=== PATIENT | male | born 1950 | race Caucasian/White ===

== ENCOUNTER → 2016-08-27 | Outpatient (CLI) | payer OTHER | LOC: BHLMT 11:00 | PROVIDERS: ATTEND Internal Medicine Cardiovascular Disease | DX: R07.9 Chest pain, unspecified (principal) | CPT/HCPCS: 93017-PO ==

== ENCOUNTER 2016-09-25 08:38 | Day surgery (SDC) | payer OTHER, BC ==
[2016-09-25] MEDS ORDERED: NS 1,000 ML IV ONE (08:47)
[2016-09-25] MEDS ORDERED: FAMOTIDINE 20 MG TAB PO ONE (08:47)
[2016-09-25] MEDS ORDERED: ASPIRIN EC 325 MG TAB PO ONE (08:47)
[2016-09-25] MEDS ORDERED: diphenhydrAMINE 25 MG CAP PO ONE (08:47)
[2016-09-25] MEDS ORDERED: DIAZEPAM 5 MG TAB PO ONE (08:47)
--- NOTE | 2016-09-25 09:14 | CPEKG ---
Heart Rate: 65 RR Interval: 923 P-R Interval: 220 QRSD Interval: 84 QT Interval: 384 QTC Interval: 400 P [place]: 72 QRS [place]: 35 T Wave [place]: 78 EKG Severity - ABNORMAL ECG - EKG Impression: SINUS RHYTHM EKG Impression: FIRST DEGREE AV BLOCK Electronically Signed By: Juan Lo 25-Sep-2016 21:02:47
[2016-09-25 09:28] LABS: % IMMATURE GRANULYOCYTES 0.5 % (0.0-1.1); ABSOLUTE IMMATURE GRANULOCYTES 0.03 10^3/uL (0.00-0.10); ADD DIFF? NO; ADD MORPH? NO; ADD SCAN? NO; ATYPICAL LYMPHOCYTE FLAG 10 (0-99); FRAGMENT RBC FLAG 0 (0-99); HEMATOCRIT 37.7 % (40.0-51.0); HEMOGLOBIN 13.3 g/dL (13.7-17.5); LEFT SHIFT FLG 0 (0-99); LIPEMIA HEMOLYSIS FLAG 90 (0-99); MEAN CELL HEMOGLOBIN 30.8 pg (27.9-34.1); MEAN CELL HEMOGLOBIN CONCENTR. 35.3 g/dL (32.4-36.7); MEAN CELL VOLUME 87.3 fL (81.5-99.8); MEAN PLATELET VOLUME 9.8 fL (8.7-11.7); PLATELET CLUMPS FLAG 0 (0-99); PLATELET COUNT 213 10^3/uL (150-400); RED BLOOD CELL COUNT 4.32 10^6/uL (4.40-6.38); RED CELL DISTRIBUTION WIDTH 13.5 % (11.5-15.2)
[2016-09-25 09:37] LABS: PROTIME(PATIENT) 13.1 SEC (12.0-15.0)
[2016-09-25] MEDS ORDERED: fentaNYL 100 MCG/2 ML INJ ONE (09:39)
[2016-09-25] MEDS ORDERED: VERAPAMIL 5 MG/2 ML VIAL ONE (09:39)
[2016-09-25] MEDS ORDERED: MIDAZOLAM 2 MG/2 ML VIAL ONE (09:39)
[2016-09-25] MEDS ORDERED: LIDOCAINE 1% 300 MG/30 ML SDV ONE (09:39)
[2016-09-25] MEDS ORDERED: IOPAMIDOL (ISOVUE-370) 150 ML BTL IV ONE ×2 (09:40→10:33)
[2016-09-25] MEDS ORDERED: HEPARIN 10,000 UNIT/10 ML MDV ONE (09:40)
[2016-09-25 09:44] LABS: ANION GAP 13 mEq/L (8-16); CALCIUM 9.9 mg/dL (8.5-10.4); CARBON DIOXIDE 23 mEq/l (22-31); CHLORIDE 101 mEq/L (97-110); CHOLESTEROL 160 mg/dL (140-220); CHOLESTEROL/HDL RATIO 4.44 RATIO (1.00-4.97); CREATININE 1.1 mg/dL (0.7-1.3); GLOMERULAR FILTRATION RATE > 60; GLUCOSE 180 mg/dL (70-100); HIGH DENSITY LIPOPROTEIN 36 mg/dL (40-65); LDL/HDL RATIO 2.11 RATIO (1.00-3.64); LOW DENSITY LIPOPROTEIN 76 mg/dL (80-100); MAGNESIUM 1.5 mg/dL (1.6-2.3); NON-HIGH DENSITY LIPOPROTEIN 124 mg/dL (90-129); POTASSIUM 4.6 mEq/L (3.5-5.2); SODIUM 137 mEq/L (134-144); TRIGLYCERIDE 243 mg/dL (40-150); VERY LOW DENSITY LIPOPROTEINS 48 mg/dL (8-25)
[2016-09-25] MEDS ORDERED: MAGNESIUM SULF 1 GM/DEXTROSE 100 ML BAG IV ONE (09:55)
[2016-09-25] MEDS ORDERED: NITROGLYCERIN 1,500 MCG/15 ML VIAL MISC ONE (10:33)
[2016-09-25] MEDS ORDERED: HYDROCODONE/APAP 5/325 TAB PO PRN (11:13)
[2016-09-25] MEDS ORDERED: OXYCODONE/APAP 5/325 TAB PO PRN (11:13)
[2016-09-25] MEDS ORDERED: NITROGLYCERIN 0.4 MG BTL SL PRN (11:13)
[2016-09-25] MEDS ORDERED: ATROPINE SULFATE 1 MG/10 ML SYR IVP PRN (11:13)
[2016-09-25] MEDS ORDERED: ONDANSETRON 4 MG/2 ML VIAL IVP PRN (11:13)
--- NOTE | 2016-09-25 11:18 | PDDXCAT ---
Diagnostic Cath Note - . Date: 09/25/16 Floor Installer: White Indication: Class III or IV angina, which improves to class I/II w medical therapy - Procedure Access: right wrist Procedure: left heart catheterization, coronary angiography, left ventriculogram - Materials Left Heart Cath size: 5F Left Heart Cath materials: JL3.5, JR4.0, pigtail - Findings-Left Heart Catheterization LM: Distal 20%. LAD: Large caliber. 2 diagnonal branches. Long, tubular proximal 50% lesion. LCX: Single large OM1. High grade (80%) proximal circumflex lesion. Co-dominant with PDA and PL branches. RCA: Dominant, PDa and PL identified. Proximal 80% lesion. EDP: 90/19/24 mmHg. LVEF: >70%. V-gram complicated by VT. Wall motion: Normal. - Findings-Right Heart Catheterization AO: 76/42 mmHg. Complications: None. Estimated blood loss: <50ml Closure method: TR Band Assessment: 3V CAD, CCS III angina, DM2. Plan: Refer to CT surgery for consideration of 3v CABG. Intervention: None.
--- NOTE | 2016-09-25 12:44 | ECHO ---
[id number] + + [address] : : [place] [address] : : [phone] + + Adult Echocardiographic Report + -+ :Name: Hillary ZAMBRANOmic Date: 09/25/2016 11:45 AM BP: 97/53 mmHg : : Hospital Admission Number: [id number] Location: C: :: 1950 Gender: Male Height: 70 in : :Age: 66 yrs Race: WH Weight: 225 lb : :Reason For Study: pre-cabg : : BSA: 2.2 meters2 : :History: pre-CABG : + -+ MMode/2D Measurements \T\ Calculations IVSd: 1.2 cm LVIDd: 4.3 cm FS: 41.9 % Ao root diam: 2.9 cm LVPWd: 1.0 cm LVIDs: 2.5 cm EDV(Teich): 83.7 ml ESV(Teich): 22.4 ml EF(Teich): 73.2 % Normal Measurement Values: + + :LVIDd (3.5-5.7cm) IVSd (0.6-1.1cm) LVPWd (0.6-1.1cm) Aortic Root (2.0-3.7cm)Left Atrium (1.5-4.0cm): :LV Vol(d) (76-115ml) LV Vol(s) (29-48ml) Ejec Fraction (50-65%)PV Thomas (0.6- 1.2m/s) TV Thomas (0.4-1.0m/s) : :MV E Thomas (0.8-1.0m/s)MV A Thomas (0.3-1.0m/s)LVOT Thomas (0.7-1.2m/s) Asc Ao Thomas ( 0.9-1.8m/s) : + + Doppler Measurements \T\ Calculations MV E max thomas: Ao V2 max: LV V1 max: PA V2 max: 71.6 cm/sec 139.0 cm/sec 73.5 cm/sec 79.9 cm/sec MV A max thomas: Ao max P.7 mmHg LV V1 max PG: PA max P.5 cm/sec 2.2 mmHg 2.6 mmHg MV E/A: 0.97 MV dec time: 0.18 sec Left Ventricle The left ventricle is normal in size and function. There is mild concentric left ventricular hypertrophy. Ejection Fraction = 65%. Regional wall motion abnormalities cannot be excluded due to limited visualization. Right Ventricle The right ventricle is normal in size and function. Atria The left atrial size is normal. Right atrial size is normal. Mitral Valve The mitral valve is normal in structure and function. There is no mitral valve stenosis. There is no mitral regurgitation noted. Tricuspid Valve The tricuspid valve is normal in structure and function. There is no tricuspid stenosis. There is trace tricuspid regurgitation. Aortic Valve The aortic valve is not well visualized. There is no aortic stenosis. There is no aortic insufficiency. Pulmonic Valve The pulmonic valve is not well visualized. Great Vessels The aortic root is normal size. Pericardium/Pleural There is no pericardial effusion. Conclusion The study was technically difficult. A two-dimensional transthoracic echocardiogram with M-mode and Doppler was performed. The left ventricle is normal in size and function. There is mild concentric left ventricular hypertrophy. Ejection Fraction = 65%. There is trace tricuspid regurgitation. The aortic valve is not well visualized. Final Reading Physician: Lacey Levi signed on 09/25/2016 12:43 PM Ordering Physician: Art Campos Performed By: Bela Dunlap
== END 2016-09-25 15:14 | disposition home or self-care (01) ==
LOC: FCATH 08:38
PROVIDERS: ATTEND Internal Medicine Cardiovascular Disease
PROC: B2111ZZ Fluoroscopy of Multiple Coronary Arteries using Low Osmolar Contrast (ICD-10-PCS; principal; 2016-09-25)
PROC: 4A023N7 Measurement of Cardiac Sampling and Pressure, Left Heart, Percutaneous Approach (ICD-10-PCS; principal; 2016-09-25)
PROC: B2151ZZ Fluoroscopy of Left Heart using Low Osmolar Contrast (ICD-10-PCS; principal; 2016-09-25)
DX: I25.119 Atherosclerotic heart disease of native coronary artery with unspecified angina pectoris (principal); I10 Essential (primary) hypertension; E78.5 Hyperlipidemia, unspecified; E11.9 Type 2 diabetes mellitus without complications; Z87.891 Personal history of nicotine dependence; Z82.49 Family history of ischemic heart disease and other diseases of the circulatory system
CPT/HCPCS: 93005; 93306; 93458; C1769; J1644; J2250; J3010; J3475; Q9967

== ENCOUNTER → 2016-10-02 | Outpatient (CLI) | payer OTHER, BC | LOC: BHFA 08:30 | PROVIDERS: ATTEND Thoracic Surgery (Cardiothoracic Vascular Surgery) | DX: I65.23 Occlusion and stenosis of bilateral carotid arteries (principal) ==

== ENCOUNTER → 2016-10-02 | Outpatient (CLI) | payer OTHER, BC | LOC: FLAB 09:19 | PROVIDERS: ATTEND Thoracic Surgery (Cardiothoracic Vascular Surgery) | DX: Z01.818 Encounter for other preprocedural examination (principal); I25.10 Atherosclerotic heart disease of native coronary artery without angina pectoris ==

== ENCOUNTER 2016-10-04 05:20 | Inpatient (IN) | payer OTHER, BC ==
[2016-10-02 10:28] LABS: HEMOGLOBIN A1C 6.9 % (4.0-6.0)
[2016-10-04] MEDS ORDERED: LIDOCAINE 1% 2 ML INJ ONE (05:58)
[2016-10-04] MEDS ORDERED: LIDOCAINE 1% 5 ML SDV ID PRN (06:00)
[2016-10-04] MEDS ORDERED: niCARdipine/NACL 200 ML IV ONE (06:00)
[2016-10-04] MEDS ORDERED: MANNITOL 25% 12.5 GM/50 ML VIAL IV ONE (06:00)
[2016-10-04] MEDS ORDERED: ceFAZolin 2 GM/DEXTROSE 100 ML IV ONE (06:00)
[2016-10-04] MEDS ORDERED: INSULIN REGULAR HUMAN 100 UNIT in NS 100 ML IV ONE (06:00)
[2016-10-04] MEDS ORDERED: VERAPAMIL 5 MG, NITROGLYCERIN 2.5 MG, HEPARIN 500 UNIT, SODIUM BICARBONATE 0.2 MEQ in L... MISC ONE (06:00)
[2016-10-04] MEDS ORDERED: PHENYLEPHRINE HCL 50 MG in NS 250 ML IV ONE (06:00)
[2016-10-04] MEDS ORDERED: AMINOCAPROIC ACID 5 GM/20 ML VIAL IV ONE (06:00)
[2016-10-04] MEDS ORDERED: CITRATE DEXTROSE SOLN 500 ML BAG MISC ONE (06:00)
[2016-10-04] MEDS ORDERED: SODIUM BICARBONATE 20 MEQ, LIDOCAINE 1% 10 ML in NORMOSOL-R 1,000 ML MISC ONE (06:00)
[2016-10-04] MEDS ORDERED: NOREPINEPHRINE BITARTRATE 16 MG in NS 250 ML IV ONE (06:00)
[2016-10-04] MEDS ORDERED: LR 1,000 ML IV ONE (06:11)
--- NOTE | 2016-10-04 06:24 | PDHPUP ---
History & Physical Update H&P update statement: This history and physical update is based on an assessment of the patient which was completed after admission or registration (within 24 hours), but prior to the surgery/procedure. H&P changes: -Carotid US: bilateral plaquing, no hemodynamically sig stenoses ICAs, LECA up to 75% stenosis by velocities. Antegrade vert flow bilat. - Endorses twinges of chest pain last couple days, independent of activity, not long enough or severe enough to take NTG
[2016-10-04] MEDS ORDERED: PROTAMINE SULFATE 50 MG/5 ML VIAL IVP ONE ×2 (06:40→09:15)
[2016-10-04] MEDS ORDERED: AMINOCAPROIC ACID 5 GM/20 ML VIAL ONE ×2 (06:41→06:45)
[2016-10-04] MEDS ORDERED: MILRINONE/DEXTROSE/100 ML BAG IV ONE (06:41)
[2016-10-04] MEDS ORDERED: POTASSIUM Cl (KCl) 20 MEQ/50 ML BAG IV ONE (06:41)
[2016-10-04] MEDS ORDERED: CALCIUM CHLORIDE 1 GM/10 ML INJ ONE (06:41)
[2016-10-04] MEDS ORDERED: niCARdipine/NACL/200 ML BAG IV ONE (06:42)
[2016-10-04] MEDS ORDERED: DOPamine/DEXTROSE/250 ML BAG IV ONE ×2 (06:42→22:22)
[2016-10-04] MEDS ORDERED: NA BICARBONATE 50 MEQ/50 ML VIAL ONE (06:42)
[2016-10-04] MEDS ORDERED: AMIODARONE HCL 150 MG/3 ML VIAL ONE ×2 (06:43→06:46)
[2016-10-04] MEDS ORDERED: ADENOSINE 6 MG/2 ML VIAL ONE (06:43)
[2016-10-04] MEDS ORDERED: HEPARIN 10,000 UNIT/10 ML MDV ONE ×2 (06:44→06:46)
[2016-10-04] MEDS ORDERED: ceFAZolin 1 GM VIAL ONE (06:44)
[2016-10-04] MEDS ORDERED: ALBUMIN 5% 250 ML BOTTLE IV ONE (06:44)
[2016-10-04] MEDS ORDERED: LIDOCAINE 2% 100 MG/5 ML SYR ONE (06:45)
[2016-10-04] MEDS ORDERED: CITRATE DEXTROSE SOLN 500 ML BAG ONE (06:45)
[2016-10-04] MEDS ORDERED: MAGNESIUM SULFATE 1 GM/2 ML VIAL ONE (06:46)
[2016-10-04] MEDS ORDERED: methylPREDNISolone SOD SUCC 1 GM/8 ML VIAL ONE (06:46)
[2016-10-04] MEDS ORDERED: MINERAL OIL 10 ML VIAL ONE (06:47)
[2016-10-04] MEDS ORDERED: PAPAVERINE HCL 60 MG/2 ML SDV ONE (06:48)
[2016-10-04] MEDS ORDERED: VERAPAMIL 5 MG/2 ML VIAL ONE (06:48)
[2016-10-04] MEDS ORDERED: MIDAZOLAM 2 MG/2 ML VIAL IVP ONE (06:51)
[2016-10-04] MEDS ORDERED: LIDOCAINE 1% 2 ML INJ ID PRN (06:51)
--- NOTE | 2016-10-04 06:52 | PDANEPAE ---
ANE History of Present Illness cad ANE Past Medical History - Cardiovascular History Hx Hypertension: Yes Hx Arrhythmias: No Hx Chest Pain: Yes Hx Coronary Artery / Peripheral Vascular Disease: Yes Hx CHF / Valvular Disease: No Hx Palpitations: No Cardiovascular History Comment: hyperlipidemia. abnormal stress test. cad. recent dull chest pain - Pulmonary History Hx COPD: No Hx Asthma/Reactive Airway Disease: No Hx Recent Upper Respiratory Infection: No Hx Oxygen in Use at Home: No Hx Sleep Apnea: Yes Sleep Apnea Screening Result - Last Documented: Positive Pulmonary History Comment: olinda positive but hasn't used cpap in a long while. hx of bronchitis. wheezing at times now but pt thinks it's allergy related - Neurologic History Hx Cerebrovascular Accident: No Hx Seizures: No Hx Dementia: No - Endocrine History Hx Diabetes: Yes Endocrine History Comment: type 2 - Renal History Hx Renal Disorders: Yes Renal History Comment: bph - Liver History Hx Hepatic Disorders: No - Neurological & Psychiatric Hx Hx Neurological and Psychiatric Disorders: Yes Neurological / Psychiatric History Comment: ptsd - Cancer History Hx Cancer: No - Congenital Disorder History Hx Congenital Disorders: No - GI History Hx Gastrointestinal Disorders: No - Other Health History Other Health History: wears glasses. upper and lower partial plate - Chronic Pain History Chronic Pain: Yes (occ hand pain, knees and ankles have arthritis) - Surgical History Prior Surgeries: right shoulder surgery- seperated shoulder . cervical spine fusion ANE Review of Systems - Exercise capacity METS (RN): 3 METS ANE Patient History - Allergies Allergies/Adverse Reactions: No Known Allergies Allergy (Verified 10/03/16 15:22) - Home Medications Home Medications: Albuterol [Proventil Inhaler HFA (*)] 1 - 2 puffs IH DAILY PRN 09/25/16 [Last Taken 10/02/16] Aspirin [Aspirin 81mg (*)] 81 mg PO DAILY 09/25/16 [Last Taken 10/03/16] Atorvastatin Calcium [Lipitor 40 mg (*)] 40 mg PO HS 09/25/16 [Last Taken 22:00] Chlorthalidone [Chlorthalidone 25 mg (*)] 25 mg PO DAILY 09/25/16 [Last Taken ] Fluticasone Nasal [Flonase Nasal Dillon (RX)] 2 sprays NASAL DAILY PRN 09/25/16 [ Last Taken 10/02/16] Insulin Aspart [Novolog Flexpen] 15 - 30 unit SQ TIDMEAL 09/25/16 [Last Taken 21:00] Insulin Detemir [Levemir] 45 - 50 unit SQ HS 09/25/16 [Last Taken 10/03/16 21:00 ] Liraglutide [Victoza 3-Williams] 1.8 mg SQ DAILY 09/25/16 [Last Taken 10/03/16] Lisinopril [Zestril 20 mg (*)] 20 mg PO BID 09/25/16 [Last Taken 10/03/16 22:00] Nitroglycerin [Nitrostat 0.4 mg (*)] 0.4 mg SL Q5M PRN 09/25/16 [Last Taken Unknown] Sertraline HCl [Zoloft 100mg (*)] 100 mg PO DAILY 09/25/16 [Last Taken 10/03/16] Tamsulosin HCl [Flomax 0.4 MG (*)] 0.4 mg PO HS 09/25/16 [Last Taken 10/03/16 21 :00] metFORMIN HCL [Glucophage 500 mg (*)] 1,000 mg PO BIDMEAL 09/25/16 [Last Taken 10/01/16] traZODone [traZODONE 50MG (*)] 50 - 100 mg PO HS 09/25/16 [Last Taken 10/03/16 22:00] Metoprolol Tartrate [Lopressor 25 mg (*)] 12.5 mg PO BID 10/03/16 [Last Taken 22:00] - NPO status NPO Status: no food or drink >8 hours NPO Since - Liquids (Date): 10/03/16 NPO Since - Liquids (Time): 22:00 NPO Since - Solids (Date): 10/03/16 NPO Since - Solids (Time): 19:00 - Smoking Hx Smoking Status: Former smoker - Family Anes Hx Family Hx Anesthesia Complications: none ANE Labs/Vital Signs - Vital Signs Blood Pressure: 131/60 Heart Rate: 91 Respiratory Rate: 14 O2 Sat (%): 91 Height: 175.26 cm Weight: 102.058 kg ANE Physical Exam - Airway Mallampati Score: Class 2 Mouth exam: normal dental/mouth exam - Pulmonary Pulmonary: no respiratory distress - Cardiovascular Cardiovascular: regular rate and rhythym - ASA Status ASA Status: III ANE Anesthesia Plan Anesthesia Plan: general endotracheal anesthesia Lines/Monitors: arterial line, central line, SHOBHA
[2016-10-04] MEDS ORDERED: MIDAZOLAM 2 MG/2 ML VIAL ONE ×2 (07:02→11:19)
[2016-10-04] MEDS ORDERED: ROCURONIUM 100 MG/10 ML VIAL ONE (07:06)
[2016-10-04] MEDS ORDERED: PHENYLEPHRINE 10 MG/ML SDV ONE (07:06)
[2016-10-04] MEDS ORDERED: LIDOCAINE 2% 5 ML SDV ONE (07:07)
[2016-10-04] MEDS ORDERED: SUCCINYLCHOLINE CHLORIDE*ANESTHESIA ONLY*200 MG/10 ML SYR IVP ONE (07:13)
[2016-10-04] MEDS: MUPIROCIN 2% 22 GM OINT NS SCH ×3 (07:17→21:00)
[2016-10-04] MEDS ORDERED: fentaNYL 100 MCG/2 ML INJ ONE ×6 (07:17→11:15)
[2016-10-04] MEDS ORDERED: PROPOFOL 200 MG/20 ML VIAL ONE (07:18)
[2016-10-04] MEDS ORDERED: NITROGLYCERIN 50 MG/10 ML SDV IV ONE (08:05)
[2016-10-04] MEDS ORDERED: GLYCOPYRROLATE 0.2 MG/1 ML VIAL ONE (08:06)
[2016-10-04] MEDS ORDERED: DEXMEDETOMIDINE HCL 400 MCG in NS 100 ML IV SCH (10:30)
--- NOTE | 2016-10-04 10:50 | POSTOPPROG ---
Post Op Note Date of Operation: 10/04/16 Surgeon: Chung Gimenez Mandarin Chinese Teacher: Quoc Anesthesiologist: Matias Anesthesia: GET(General Endotracheal) Pre-op Diagnosis: ASHD Procedure: CAB 4 SVG-Lad, Lcx,Rca FLIMA-Dg, EVH, Atriclip Inf/Abcess present in the surg proc area at time of surgery?: No EBL: Minimal
[2016-10-04] MEDS ORDERED: MAGNESIUM HYDROXIDE 30 ML UDCUP PO PRN (11:03)
[2016-10-04] MEDS ORDERED: POLYETHYLENE GLYCOL 3350 17 GM PKT PO PRN (11:03)
[2016-10-04] MEDS ORDERED: ONDANSETRON 4 MG/2 ML VIAL IVP PRN (11:03)
[2016-10-04] MEDS ORDERED: MEPERIDINE 25 MG/ML SYR IVP PRN (11:03)
[2016-10-04] MEDS ORDERED: MAGNESIUM SULF 2 GM/WATER 50 ML IV ONE (11:03)
[2016-10-04] MEDS ORDERED: SODIUM CL NASAL 45 ML BTL EACHNARE PRN (11:03)
[2016-10-04] MEDS ORDERED: METOCLOPRAMIDE 10 MG/2 ML VIAL IVP PRN (11:03)
[2016-10-04] MEDS ORDERED: fentaNYL 100 MCG/2 ML INJ IVP PRN (11:03)
[2016-10-04] MEDS ORDERED: POTASSIUM Cl (KCl) 50 ML IV PRN (11:03)
[2016-10-04] MEDS ORDERED: CEPACOL LOZENGE PO PRN (11:03)
[2016-10-04] MEDS ORDERED: ACETAMINOPHEN 650 MG SUPP PR PRN (11:03)
[2016-10-04] MEDS ORDERED: PANTOPRAZOLE SODIUM 40 MG in NS 100 ML IV ONE (11:03)
[2016-10-04] MEDS ORDERED: BISACODYL 10 MG SUPP PR PRN (11:03)
[2016-10-04] MEDS ORDERED: D50W 25 GM/50 ML SYR IVP PRN (11:03)
[2016-10-04] MEDS ORDERED: LACTULOSE 20 GM/30 ML UDCUP PO PRN (11:03)
[2016-10-04] MEDS ORDERED: ALBUMIN 5% 250 ML IV PRN (11:03)
[2016-10-04] MEDS ORDERED: ONDANSETRON DISINTEGRATING 4 MG TAB PO PRN (11:03)
[2016-10-04] MEDS ORDERED: NS 1,000 ML IV SCH (11:15)
[2016-10-04] MEDS ORDERED: NALOXONE HCL 0.4 MG/ML INJ IVP PRN ×2 (11:29→20:30)
--- NOTE | 2016-10-04 11:29 | POSTANESTH ---
Post Anesthetic Evaluation Cardiovascular Status: Normal, Stable Respiratory Status: Normal, Stable Level of Consciousness/Mental Status: Can Participate in Eval, Moderately Sleepy Pain Control: Adequate, Prn Tx Ordered Nausea/Vomiting Control: Adequate, Prn Tx Ordered Complications Possibly Related to Anesthesia: None Noted
[2016-10-04] MEDS ORDERED: INSULIN REGULAR HUMAN 100 UNIT in NS 100 ML IV SCH (11:30)
[2016-10-04 12:00] LABS: CALCULATED OXYGEN SATURATION 96 % (92-95); O2 CONCENTRATIION 100 % (0-100)
[2016-10-04] MEDS ORDERED: D10W 250 ML PRN HYPOGLYCEMIA IV (12:00)
[2016-10-04] MEDS ORDERED: KETOROLAC 30 MG/1 ML SDV ONE (12:55)
[2016-10-04] MEDS ORDERED: KETOROLAC 30 MG/1 ML SDV IVP ONE (13:00)
--- NOTE | 2016-10-04 16:07 | GOP ---
[f rep st] OPERATIVE REPORT DATE OF OPERATION: 10/04/2016 SURGEON: Chung Gimenez DO STEAM CONDITIONER FILLING: MARBELLA Matias ANESTHESIOLOGIST: Luigi Salcedo MD PREOPERATIVE DIAGNOSIS: Arteriosclerotic heart disease with unstable angina. POSTOPERATIVE DIAGNOSIS: Arteriosclerotic heart disease with unstable angina. PROCEDURE PERFORMED: 1. Coronary artery bypass grafting x4 with the saphenous vein graft to the left anterior descending artery, the lateral circumflex, and the right coronary artery; and free left internal mammary arter y to the diagonal. 2. Endoscopic vein harvest. 3. Ligation of left atrial appendage with AtriClip. FINDINGS: The patient was noted to have mild LV dysfunction with hypertrophic heart disease. Was n oted to have severe 3-vessel disease. DESCRIPTION OF PROCEDURE: He was brought to the operating room after consent. He was prepped and d raped in sterile classical manner. Sternotomy was performed. The mammary was harvested; however, h is chest wall was quite short and the LAD lesion was distal. It was therefore taken as a free graft in hopes that it would be adequate for a small LAD. It had brisk flow, but was 1.5 to 1.7 mm in di ameter. The vein was harvested endoscopically from the left leg and was good quality vein, harveste d by Della Kumari, who first assisted throughout the procedure. The patient was heparinized, cannulated . Bypass was begun. A cardioplegic arrest was obtained with antegrade cardioplegia and topical hyp othermia as well as systemic cooling. Initially, the circumflex vessel was grafted and brought off the ascending aorta with a cross-clamp on. It was a 2.5 mm good quality vessel. We then ligated the left atrial appendage with a 40 mm At riClip. We then looked at both the LAD and diagonal. LAD was a large vessel; because of that, and a very small left internal mammary artery, also the fact that the LAD was rather diffusely diseased until the distal 1/3rd, a good quality vein graft was brought off the LAD and brought off the ascend ing aorta. The free left internal mammary artery was grafted to a 1.5 mm diagonal, and brought off the cabrales of the vein graft to the LAD. Rewarming was begun while the main right coronary artery was grafted. It was a 2.3 mm good quality vessel distally with a proximal anastomosis brought off the ascending aorta. The cross-clamp was removed with suction on the ascending aortic vent, in Trendelenburg. When no fu rther air was identified, the patient was easily weaned from bypass. Echo revealed preserved LV fun ction with no changes and no valvular abnormalities. Heparin was reversed with protamine. The avery halley was removed and oversewn. Two ventricular pacing wires and 2 pleural, 1 mediastinal drain were placed. The thymic fat and pericardium were closed. Chest was closed in standard fashion. The pat ient was returned to ICU in stable condition. /[id number]/MODL
[2016-10-04] MEDS: HYDROCODONE/APAP 5/325 TAB PO PRN (19:10)
[2016-10-04] MEDS ORDERED: ALBUMIN 5% 250 ML IV ONE (20:30)
[2016-10-04] MEDS: HYDROmorphONE/DILAUDID 6 MG/30 ML PCA IV PRN (21:45)
[2016-10-04] MEDS ORDERED: FUROSEMIDE 20 MG/2 ML VIAL ONE (23:54)
[2016-10-05 00:02] LABS: HEMATOCRIT 27.7 % (40.0-51.0); HEMOGLOBIN 9.7 g/dL (13.7-17.5); MEAN CELL HEMOGLOBIN 31.2 pg (27.9-34.1); MEAN CELL VOLUME 89.1 fL (81.5-99.8); RED BLOOD CELL COUNT 3.11 10^6/uL (4.40-6.38); RED CELL DISTRIBUTION WIDTH 14.1 % (11.5-15.2)
[2016-10-05] MEDS: HYDROCODONE/APAP 5/325 TAB PO PRN ×2 (00:05→06:18)
[2016-10-05] MEDS ORDERED: FUROSEMIDE 20 MG/2 ML VIAL IVP ONE (01:45)
[2016-10-05 02:00] LABS: CALCULATED OXYGEN SATURATION 91 % (92-95)
[2016-10-05] MEDS ORDERED: ALBUMIN 5% 250 ML IV ONE ×2 (02:00→11:30)
[2016-10-05 04:52] LABS: % IMMATURE GRANULYOCYTES 0.2 % (0.0-1.1); ABSOLUTE IMMATURE GRANULOCYTES 0.02 10^3/uL (0.00-0.10); ADD DIFF? NO; ADD MORPH? NO; ADD SCAN? NO; ATYPICAL LYMPHOCYTE FLAG 0 (0-99); FRAGMENT RBC FLAG 0 (0-99); HEMATOCRIT 27.8 % (40.0-51.0); HEMOGLOBIN 9.4 g/dL (13.7-17.5); LEFT SHIFT FLG 0 (0-99); LIPEMIA HEMOLYSIS FLAG 90 (0-99); MEAN CELL HEMOGLOBIN 30.1 pg (27.9-34.1); MEAN CELL HEMOGLOBIN CONCENTR. 33.8 g/dL (32.4-36.7); MEAN CELL VOLUME 89.1 fL (81.5-99.8); MEAN PLATELET VOLUME 10.1 fL (8.7-11.7); PLATELET CLUMPS FLAG 0 (0-99); PLATELET COUNT 151 10^3/uL (150-400); RED BLOOD CELL COUNT 3.12 10^6/uL (4.40-6.38); RED CELL DISTRIBUTION WIDTH 14.1 % (11.5-15.2)
[2016-10-05 05:16] LABS: ANION GAP 13 mEq/L (8-16); CALCIUM 9.5 mg/dL (8.5-10.4); CARBON DIOXIDE 21 mEq/l (22-31); CHLORIDE 102 mEq/L (97-110); GLOMERULAR FILTRATION RATE 33; GLUCOSE 131 mg/dL (70-100); POTASSIUM 4.7 mEq/L (3.5-5.2); SODIUM 136 mEq/L (134-144)
--- NOTE | 2016-10-05 07:10 | SOAPPROG ---
SOAP Progress Note Assessment/Plan: Assessment: POD#1 CABG x 4 with FULTON and endoscopic vein harvest from left leg. Ligation of left atrial appendage with AtriClip. Severe CAD with unstable angina s/p CABG x 4. On ASA and Lipitor. No BB due to hypotension. No ACEi due to elevated Cr. Plavix started today. Hypotension overnight requiring albumin and initiation of a Dopamine gtt. Hypotension persists this am. Echo ordered. Respiratory insufficiency stable. Tolerating extubation yesterday. Currently on 4L NC with adequate O2 sats. Acute postop blood loss anemia stable with H&H 9.4/27.8 (9.7/27.7). Will start Iron. Acute kidney injury with BUN 26/Cr 2.0. Preop Cr 1.0. UOP 350mls/12hrs despite albumin, Lasix and Dopamine gtt. Will continue to give more albumin and follow. No ACEi. Keep montoya for accuate I&O's. Chest tube output 271mls/12hrs. No airleak appreciated. Blakes to bulbs. Deconditioning. Encourage ambulation when stable and IS. PT/OT. Plan: Start Plavix today. Will check echo. Oxy/Amanda for better pain control. Blakes to bulbs. Subjective: Patient reports poor pain control. Pain localized to lower sternum. Objective: Vital Signs Temp Pulse Resp BP Pulse Ox 37.9 C 94 16 100/54 L 96 10/05/16 06:00 10/05/16 06:00 10/05/16 06:00 10/05/16 06:00 10/05/16 06:00 Laboratory Results 10/05/16 04:30 10/05/16 04:30 10/04/16 10/05/16 10/06/16 05:59 05:59 05:59 Intake Total 1302.7 750 Output Total 1471 35 Balance -168.3 715 Physical Exam - Physical Exam General Appearance: WD/WN, alert Respiratory: lungs clear, decreased breath sounds (bases) Cardiac/Chest: regular rate, rhythm Abdomen: normal bowel sounds, non-tender, distended (normally) Skin: warm/dry Extremities: other (warm, minimal lower extremity edema) Neuro/Psych: alert, oriented x 3 ICD10 Worksheet Patient Problems: Problems Problem Status Onset CAD (coronary artery disease), [place] coronary artery Acute - ICD10 Problem Qualifiers (1) CAD (coronary artery disease), [place] coronary artery Qualifiers: [place] vs. transplanted heart: [place] heart Associated angina: with unstable angina Qualified Code(s): I25.110 - Atherosclerotic heart disease of [place] coronary artery with unstable angina pectoris
[2016-10-05] MEDS: CLOPIDOGREL BISULFATE 75 MG TAB PO SCH (08:39)
[2016-10-05] MEDS: PANTOPRAZOLE SODIUM 40 MG TAB PO SCH (08:39)
[2016-10-05] MEDS: SERTRALINE HCL 100 MG TAB PO SCH (08:39)
[2016-10-05] MEDS: ASPIRIN 81 MG CHEWABLE TAB PO SCH (08:39)
[2016-10-05] MEDS: MUPIROCIN 2% 22 GM OINT NS SCH ×2 (08:41→21:13)
[2016-10-05] MEDS: HEPARIN 5,000 UNIT/0.5 ML SYR SC SCH ×3 (08:41→22:18)
[2016-10-05] MEDS ORDERED: ALBUTEROL 60 PUFFS/8 GM MDI IH PRN (09:00)
[2016-10-05] MEDS ORDERED: FLUTICASONE NASAL 120 SPRAYS/16 GM MDI EACHNARE PRN (09:00)
[2016-10-05] MEDS ORDERED: FUROSEMIDE 40 MG/4 ML VIAL IVP ONE (10:30)
[2016-10-05] MEDS ORDERED: oxyCODONE ORAL SOLUTION 10 MG/0.5 ML UDSYR PO PRN (10:54)
[2016-10-05] MEDS ORDERED: NOREPINEPHRINE/NS 500 ML IV SCH (11:00)
[2016-10-05] MEDS: FERROUS SULFATE 325 MG TAB PO SCH ×2 (11:45→19:57)
[2016-10-05] MEDS ORDERED: oxyCODONE IR 5 MG TAB PO PRN (12:06)
[2016-10-05 12:20] LABS: POTASSIUM 5.1 mEq/L (3.5-5.2)
[2016-10-05] MEDS: HYDROmorphONE/DILAUDID 6 MG/30 ML PCA IV PRN (12:23)
--- NOTE | 2016-10-05 12:28 | ECHO ---
[id number] + + [address] : : [place] [address] : : [phone] + + Adult Echocardiographic Report + -+ :Name: ALBERTO ZAMBRANOjonathan Date: 10/05/2016 10:41 AM : : Hospital Admission Number: [id number] Location: 3: :: 1950 Gender: Male Height: 69 in : :Age: 66 yrs Race: WH Weight: 225 lb : :Reason For Study: Post operative : : BSA: 2.2 meters2 : + -+ MMode/2D Measurements \T\ Calculations IVSd: 1.1 cm LVIDd: 3.9 cm FS: 37.3 % LVPWd: 1.3 cm LVIDs: 2.4 cm EDV(Teich): 65.8 ml ESV(Teich): 21.1 ml EF(Teich): 67.9 % Normal Measurement Values: + + :LVIDd (3.5-5.7cm) IVSd (0.6-1.1cm) LVPWd (0.6-1.1cm) Aortic Root (2.0-3.7cm)Left Atrium (1.5-4.0cm): :LV Vol(d) (76-115ml) LV Vol(s) (29-48ml) Ejec Fraction (50-65%)PV Thomas (0.6- 1.2m/s) TV Thomas (0.4-1.0m/s) : :MV E Thomas (0.8-1.0m/s)MV A Thomas (0.3-1.0m/s)LVOT Thomas (0.7-1.2m/s) Asc Ao Thomas ( 0.9-1.8m/s) : + + Doppler Measurements \T\ Calculations MV E max thomas: 119.0 cm/sec Ao mean P.8 mmHg LV V1 max: 102.2 cm/sec MV A max thomas: 56.3 cm/sec Ao V2 mean: 91.5 cm/sec LV V1 max P.2 mmHg MV E/A: 2.1 Ao V2 VTI: 23.5 cm LV V1 mean P.2 mmHg MV dec time: 0.19 sec LV V1 mean: 69.9 cm/sec LV V1 VTI: 17.2 cm Left Ventricle The left ventricle is normal in size. There is mild concentric left ventricular hypertrophy. Ejection Fraction = 65%. Regional wall motion abnormalities cannot be excluded due to limited visualization. Right Ventricle The right ventricle is grossly normal size. The right ventricular systolic function is normal. Atria The left atrial size is normal. Right atrial size is normal. Mitral Valve The mitral valve is normal in structure and function. There is no mitral valve stenosis. There is no mitral regurgitation noted. Tricuspid Valve The tricuspid valve is normal in structure and function. There is no tricuspid stenosis. There is trace tricuspid regurgitation. Aortic Valve The aortic valve is not well visualized. There is no aortic stenosis. There is no aortic insufficiency. Pulmonic Valve The pulmonic valve is not well visualized. There is no pulmonic valvular regurgitation. Pericardium/Pleural There is no pericardial effusion. There is a fat pad seen. Conclusion A complete two-dimensional transthoracic echocardiogram was performed (2D, M-mode, Doppler and color flow Doppler). The study was technically difficult. There is mild concentric left ventricular hypertrophy. Ejection Fraction = 65%. Suboptimal imaging precludes a detailed assessment of valvular structures and regional wall motion. No gross valvuar abnormalities. There is trace tricuspid regurgitation. There is no pericardial effusion. Final Reading Physician: Lacey Spencer signed on 10/05/2016 12:26 PM Ordering Physician: Chung Gimenez Performed By: Mariangel Rivera
[2016-10-05] MEDS: FUROSEMIDE 100 MG in D5W 100 ML IV SCH (14:37)
[2016-10-05] MEDS ORDERED: DOPamine/DEXTROSE/250 ML BAG IV ONE (14:41)
[2016-10-05] MEDS ORDERED: D50W 25 GM/50 ML SYR IVP PRN (14:57)
--- NOTE | 2016-10-05 14:59 | GCON ---
[f rep st] CONSULTATION CRITICAL CARE CONSULT DATE OF CONSULTATION: 10/05/2016 HISTORY OF PRESENT ILLNESS: The patient is a 66-year-old male with a history of multiple cardiac ri sk factors, and exertional chest pain, with an abnormal stress test. He underwent cardiac catheteri zation, and was found to have multivessel coronary artery disease, and was admitted for coronary art mirta bypass grafting. His surgery was fairly unremarkable, he was to come back to the ICU extubated, but self-extubated at that time, was relatively stable overnight, though did require pressor suppor t with dopamine, which was changed to Levophed earlier today. He did have some issues of hypoxemia, but has known sleep apnea, and does not use CPAP at home, and felt much better by today. He curren dolores is denying any chest pain, and that is improving daily and no specific cough. REVIEW OF SYSTEMS: Otherwise negative. PAST MEDICAL HISTORY: 1. Benign prostatic hypertrophy. 2. Chronic bronchitis, but no inhaler usage. 3. Diabetes. 4. Hyperlipidemia. 5. Hypertension. 6. Sleep apnea. PAST SURGICAL HISTORY: Includes cervical spine surgery and shoulder surgery in the past. ALLERGIES: None. FAMILY HISTORY: Includes coronary artery disease. SOCIAL HISTORY: He did smoke 1 pack per day, but quit several years ago, and denies any specific al cohol or recreational drug use. CURRENT MEDICATIONS: Include Proventil, aspirin, Lipitor, Ancef, Plavix, fentanyl, Flonase, heparin subcu, Dilaudid, insulin, Levophed, Zofran, OxyContin, Protonix, sertraline, tamsulosin. PHYSICAL EXAMINATION: VITAL SIGNS: He was afebrile. Blood pressure now 116/57 on Levophed, heart rate of 82, respirations 14, oxygen saturation 93% on 4 L. GENERAL: He was an obese male, but was awake and alert, in no apparent distress, and able to speak in full sentences without using accessor y muscles for breathing. HEENT: Pupils equally round and reactive to light. Nonicteric and noninj ected. Mucous membranes are moist, without erythema or exudate. NECK: Supple without adenopathy o r jugular vein distention. He did have a right internal jugular central line without obvious compli cation. LUNGS: Breath sounds were clear to auscultation, but diminished bilaterally. HEART: Had a regular rate and rhythm. Mediastinal incision looked clean and dry without evidence of infection or dehiscence. ABDOMEN: Soft, nontender, nondistended, without hepatosplenomegaly. EXTREMITIES: Show no clubbing, cyanosis, or edema. NEUROLOGICAL: Nonfocal. SKIN: Warm and dry without evidenc e of rash. OBJECTIVE DATA: Includes a white count 9.4, hematocrit 27.8, platelets of 151. A blood gas drawn [facility] this morning showed pH 7.30, pCO2 47, pO2 71, bicarb 23, oxygen saturation 91%. Basic metabo lic panel was significant for a creatinine of 2.0, which is clearly above his baseline. His urine o utput has also been 15 mL/h. ASSESSMENT AND PLAN: 1. Hypotension. The exact etiology is not exactly certain, he did get diuretics overnight with min imal affect. He may be hypovolemic at the moment and would probably stand to have additional volume challenges. We can consider using an for this, and following CVP to monitor urine outpu t, and his change with volume status. I would say the likely etiology here as related to his hypote nsion and ATN, and if it does not improve with a fluid challenge, we could look at urine electrolyte s tomorrow, since today's may be affected by the presence of diuretics. I see no evidence of sepsis at this point, adrenal insufficiency is highly unlikely, and an echocardiogram is pending, but I am not certain that it will show us a cardiogenic source as well. 2. Hypoxemia and sleep apnea. He has not used the CPAP regularly for quite some time. He seems to be managing reasonably well at this point, I would simply leave him on oxygen. 3. Diabetes, we should use an insulin sliding scale. We will continue to follow. /[id number]/MODL
[2016-10-05] MEDS: IPRATROPIUM/ALBUTEROL 3 ML DEYVIAL IH PRN ×3 (17:18→23:00)
[2016-10-05] MEDS: INSULIN LISPRO 100 UNIT/ML SC SCH (17:45)
[2016-10-05 17:47] LABS: POTASSIUM 5.2 mEq/L (3.5-5.2)
[2016-10-05] MEDS: SENNOSIDES/DOCUSATE SODIUM TAB PO SCH (19:57)
[2016-10-05] MEDS: TAMSULOSIN HCL 0.4 MG CAP PO SCH (19:57)
[2016-10-05] MEDS ORDERED: NOREPINEPHRINE BITARTRATE 16 MG in NS 250 ML IV SCH (21:30)
[2016-10-06 05:36] LABS: % IMMATURE GRANULYOCYTES 0.8 % (0.0-1.1); ABSOLUTE IMMATURE GRANULOCYTES 0.11 10^3/uL (0.00-0.10); ADD DIFF? NO; ADD MORPH? NO; ADD SCAN? NO; ATYPICAL LYMPHOCYTE FLAG 0 (0-99); FRAGMENT RBC FLAG 0 (0-99); HEMOGLOBIN 10.7 g/dL (13.7-17.5); LEFT SHIFT FLG 0 (0-99); LIPEMIA HEMOLYSIS FLAG 90 (0-99); MEAN CELL HEMOGLOBIN 30.9 pg (27.9-34.1); MEAN CELL HEMOGLOBIN CONCENTR. 34.5 g/dL (32.4-36.7); MEAN CELL VOLUME 89.6 fL (81.5-99.8); MEAN PLATELET VOLUME 10.3 fL (8.7-11.7); PLATELET CLUMPS FLAG 0 (0-99); PLATELET COUNT 185 10^3/uL (150-400); RED BLOOD CELL COUNT 3.46 10^6/uL (4.40-6.38)
[2016-10-06] MEDS: HEPARIN 5,000 UNIT/0.5 ML SYR SC SCH ×3 (05:42→21:53)
[2016-10-06 05:49] LABS: ANION GAP 14 mEq/L (8-16); CALCIUM 9.1 mg/dL (8.5-10.4); CARBON DIOXIDE 21 mEq/l (22-31); CHLORIDE 99 mEq/L (97-110); CREATININE 2.3 mg/dL (0.7-1.3); GLOMERULAR FILTRATION RATE 28; GLUCOSE 288 mg/dL (70-100); POTASSIUM 4.7 mEq/L (3.5-5.2); SODIUM 134 mEq/L (134-144)
[2016-10-06] MEDS: FUROSEMIDE 100 MG in D5W 100 ML IV SCH (05:55)
--- NOTE | 2016-10-06 07:20 | SOAPPROG ---
SOAP Progress Note Assessment/Plan: Assessment: POD#2 CABG x 4 with FULTON and endoscopic vein harvest from left leg. Prophylactic ligation of left atrial appendage with AtriClip. Severe CAD with unstable angina and preop EF 65% s/p CABG x 4. Will resume ASA and Lipitor when taking po. No BB due to hypotension. No ACEi due to elevated Cr. Plavix held due to patient's NPO status. Hypotension requiring continued albumin, dopa, and initiation of levo yesterday. Transfused 1UPRBC yesterday. Echo performed yesterday showed EF 65 % and no pericardial effusion. Respiratory insufficiency worsening. Now on 7L simple face mask as patient is mouth breather and persistently drowsy. Will d/c Dilaudid HOUSEKEEPING AND LAUNDRY TEAM LEADER to allow patient to be more alert. Acute postop blood loss anemia stable with H&H 10.7/31.0 (9.4/27.8). Acute kidney injury worsening with preop Cr 1.0. Labs today showed BUN 40/Cr 2.3 (26/2.0). Continued low urine output yesterday, started on Lasix gtt with good effect. UOP 1440mls/12hrs, on dopa. No ACEi. Keep montoya for accuate I&O' s. Jaundice appearing today. Will check LFTs. Left pleural chest tube output 80mls/12hrs. No airleak appreciated. Mediastinal chest tube output 40mls/12hrs. Deconditioning. Encourage ambulation when stable and IS. PT/OT. Plan: Check LFTs. D/c HOUSEKEEPING AND LAUNDRY TEAM LEADER Continue NPO. Swallow evaluation when more alert. Will d/c pacing wires. D/c chest tubes. Subjective: Patient too drowsy to complete sentences. Reports adequate pain control. Reportedly disoriented. Objective: Vital Signs Temp Pulse Resp BP Pulse Ox 38.9 C H 84 15 142/60 H 95 10/06/16 07:00 10/06/16 07:00 10/06/16 07:00 10/06/16 07:00 10/06/16 07:00 Laboratory Results 10/06/16 05:20 10/06/16 05:20 10/05/16 10/06/16 10/07/16 05:59 05:59 05:59 Intake Total 1302.7 3179.5 Output Total 1471 2325 160 Balance -168.3 854.5 -160 Physical Exam - Physical Exam General Appearance: WD/WN, other (drowsy) Respiratory: lungs clear, decreased breath sounds (bases) Cardiac/Chest: regular rate, rhythm Abdomen: normal bowel sounds, non-tender, distended (normally distended) Skin: warm/dry Extremities: pedal edema (minimal) Neuro/Psych: other (not following commands because so drowsy, reportedly disoriented per RN) ICD10 Worksheet Patient Problems: Problems Problem Status Onset CAD (coronary artery disease), [place] coronary artery Acute - ICD10 Problem Qualifiers (1) CAD (coronary artery disease), [place] coronary artery Qualifiers: [place] vs. transplanted heart: [place] heart Associated angina: with unstable angina Qualified Code(s): I25.110 - Atherosclerotic heart disease of [place] coronary artery with unstable angina pectoris
[2016-10-06] MEDS: ALBUMIN 5% 250 ML IV PRN ×2 (08:05→10:12)
[2016-10-06] MEDS: IPRATROPIUM/ALBUTEROL 3 ML DEYVIAL IH PRN ×2 (08:05→15:07)
[2016-10-06] MEDS: INSULIN LISPRO 100 UNIT/ML SC SCH ×4 (08:07→18:10)
--- NOTE | 2016-10-06 09:26 | PDINTPN ---
Surgical Resident Progress Note Assessment/Plan: Assessment/plan: 66 M with CAD and multiple cardiac RFs s/p CABG x 4 on 10/04 complicated mostly by self-extubation during transport to ICU and hypotension that required DA and multiple volume challenges. * Hypotension- resolved with fluids. Echo had EF 65% and no pericardial effusion. Off pressors. No ACS, sepsis, adrenal * Hypoxemia- could be related to fluids though was on lasix drip overnight. I suspect his narcotic-induced somnolence is contributing in addition to his untreated JAYLENE (declined CPAP). * AVELINO- likely from hypoxia/hypotension induced ATN. While uop is excellent ( lasix drip, now held), creatinine is up to 2.3. Watch closely, may need repeat BMP this afternoon (K was 4.7 at 0520 in presence of drip) * DM- started insulin SS (mild) yesterday but BG 288 this AM and should target < 140 if possible to facilitate wound healing. Given AVELINO, keep at mild scale for now. * "Chronic bronchitis"- reasonable to use albuterol prn, but would not change to scheduled for now to help avoid arrythmias. Subjective: Increased O2 overnight. No complaints today but somnolent Objective: Vital Signs Temp Pulse Resp BP Pulse Ox 38.6 C H 83 15 130/55 H 94 10/06/16 09:00 10/06/16 09:00 10/06/16 09:00 10/06/16 09:00 10/06/16 09:00 Laboratory Results 10/06/16 05:20 10/06/16 05:20 10/05/16 10/06/16 10/07/16 05:59 05:59 05:59 Intake Total 1302.7 3179.5 Output Total 1471 2325 335 Balance -168.3 854.5 -335 Physical Exam - Physical Exam General Appearance: no apparent distress, other (somnolent) EENT: PERRL/EOMI Neck: supple Respiratory: lungs clear, normal breath sounds, No respiratory distress Cardiac/Chest: regular rate, rhythm Abdomen: non-tender, soft, No distended Skin: normal color, warm/dry Lymphatic: no adenopathy Extremities: normal inspection Neuro/Psych: cognition abnormalities, No abnormal cerebellar tests ICD10 Worksheet Patient Problems: Problems Problem Status Onset CAD (coronary artery disease), [place] coronary artery Acute
[2016-10-06] MEDS: FERROUS SULFATE 325 MG TAB PO SCH (09:50)
[2016-10-06 12:17] LABS: ALBUMIN 3.9 g/dL (3.5-5.0); BILIRUBIN,TOTAL 1.2 mg/dL (0.1-1.4); BILIRUBIN-CONJUGATED 0.6 mg/dL (0.0-0.5); BILIRUBIN-UNCONJUGATED 0.6 mg/dL (0.0-1.1)
[2016-10-06 13:14] LABS: POTASSIUM 4.5 mEq/L (3.5-5.2)
[2016-10-06] MEDS: CLOPIDOGREL BISULFATE 75 MG TAB PO SCH (13:49)
[2016-10-06] MEDS: ASPIRIN 81 MG CHEWABLE TAB PO SCH (13:50)
[2016-10-06] MEDS: PANTOPRAZOLE SODIUM 40 MG TAB PO SCH (13:50)
[2016-10-06] MEDS: SERTRALINE HCL 100 MG TAB PO SCH (13:51)
[2016-10-06] MEDS: SENNOSIDES/DOCUSATE SODIUM TAB PO SCH ×2 (13:51→19:15)
[2016-10-06] MEDS: HYDROCODONE/APAP 5/325 TAB PO PRN (13:52)
[2016-10-06 17:49] LABS: POTASSIUM 4.5 mEq/L (3.5-5.2)
[2016-10-06] MEDS: TAMSULOSIN HCL 0.4 MG CAP PO SCH (19:15)
[2016-10-06] MEDS: ACETAMINOPHEN 325 MG TAB PO PRN (19:23)
[2016-10-06] MEDS ORDERED: FUROSEMIDE 40 MG/4 ML VIAL IVP ONE (20:03)
[2016-10-06] MEDS ORDERED: AMIODARONE A.FIB-6HR INFSN (ORDER 2/3) IV ONE (20:30)
[2016-10-06] MEDS ORDERED: AMIODARONE A.FIB-LOAD DOSE(ORDER 1/3) IV ONE (20:30)
[2016-10-07 00:52] LABS: POTASSIUM 4.1 mEq/L (3.5-5.2)
[2016-10-07] MEDS ORDERED: AMIODARONE A.FIB-18HR INFSN (ORDER 3/3) IV ONE (02:30)
[2016-10-07] MEDS: HYDROCODONE/APAP 5/325 TAB PO PRN ×3 (04:09→21:08)
[2016-10-07 05:48] LABS: HEMATOCRIT 29.3 % (40.0-51.0); MEAN CELL HEMOGLOBIN 30.7 pg (27.9-34.1); MEAN CELL HEMOGLOBIN CONCENTR. 34.1 g/dL (32.4-36.7); MEAN CELL VOLUME 89.9 fL (81.5-99.8); RED BLOOD CELL COUNT 3.26 10^6/uL (4.40-6.38); RED CELL DISTRIBUTION WIDTH 14.1 % (11.5-15.2)
[2016-10-07 06:06] LABS: ANION GAP 13 mEq/L (8-16); CARBON DIOXIDE 22 mEq/l (22-31); CHLORIDE 102 mEq/L (97-110); CREATININE 1.4 mg/dL (0.7-1.3); GLOMERULAR FILTRATION RATE 50; GLUCOSE 301 mg/dL (70-100); POTASSIUM 4.1 mEq/L (3.5-5.2); SODIUM 137 mEq/L (134-144)
[2016-10-07] MEDS: HEPARIN 5,000 UNIT/0.5 ML SYR SC SCH ×2 (06:10→13:09)
[2016-10-07] MEDS ORDERED: INSULIN GLARGINE 100 UNITS/ML SYRINGE SC SCH ×3 (06:44→07:00)
--- NOTE | 2016-10-07 06:48 | SOAPPROG ---
SOAP Progress Note Assessment/Plan: Assessment: POD#3 CABG x 4 (free FULTON-D1, SV-LAD, SV-PLC, SV-RCA). EVH LLE. Prophylactic AtriClip ligation of left atrial appendage. Sx CAD w preserved LV systolic fx - s/p CABG x 4. Early post op course complicated by presumed postCPB vasoplegia requiring fluid support and low dose levo. Appears to be resolving. Levo wean in progress. Tubes and wires out. Secondard prevention with ASA, BB as allowed by BP and statin and when eating well. Adjunctive Plavix x 1 month for free FULTON graft. Acute postoperative respiratory insufficiency - Multifactorial (JAYLENE, suspected COPD, hypoventilation/somnolence on narcs). Resolved with supportive therapy and adjustment in analgesic regimen. Postoperative PAF - with CVR, converting to SR on amio as per protocol. Thromboprophylaxis with DAPT unless recurrent or persistent atrial arrhythmia. Acute expected blood loss anemia - Stable s/p 1u PRBC. H/H > 11/15 maintained. VTE prophylaxis with DAPT. AVELINO - Peak Cr 2.3 of POD#2. Exacerbated by hemodynamic instability. Prompt improvement with pressor support. Follow. DM2, controlled - By preop a1c of 6.9%. Postop hyperglycemia managed with insulin gtt. Transition to prandial/basal/SSI per ICU. IM to assist with management on PCU. Plan: Wean levo to SBP >100. Colloid prn CVP < 12. Remove jan Bishop after off levo. Transition amio to orals tonight. IM consult for diabetic management. Interim restart of basal insulin. Likely can tx to PCU later today. 10/07/16 06:46 Subjective: Doing ok. Comfortable, sitting in a chair. No dizziness. No appetite, just thirst. Objective: Vital Signs Temp Pulse Resp BP Pulse Ox 37.6 C 70 16 124/60 H 94 10/07/16 04:00 10/07/16 06:00 10/07/16 06:00 10/07/16 06:00 10/07/16 06:00 Laboratory Results 10/07/16 05:40 10/07/16 05:40 10/06/16 10/07/16 10/08/16 05:59 05:59 05:59 Intake Total 3179.5 1498.8 Output Total 2325 2325 Balance 854.5 -826.2 Converted to SR ~3am. Levo down to 1 mcg w MAPs > 75, vigorous UOP and normalizing Cr. Suppl O2 req down to 3 Lpm. CXR-> no pulm vasc congestion, min left basilar atelectasis. Physical Exam - Physical Exam General Appearance: alert Respiratory: lungs clear (upper airways), wheezing (exp, at bases) Cardiac/Chest: regular rate, rhythm, other (Sternotomy and LLE venotomy CDI) Abdomen: normal bowel sounds, non-tender, soft Skin: warm/dry Extremities: swelling (trace-1+) ICD10 Worksheet Patient Problems: Problems Problem Status Onset CAD (coronary artery disease), [place] coronary artery Acute
[2016-10-07] MEDS: INSULIN LISPRO 100 UNIT/ML SC SCH ×3 (08:25→19:02)
[2016-10-07] MEDS: ASPIRIN 81 MG CHEWABLE TAB PO SCH (08:26)
[2016-10-07] MEDS: PANTOPRAZOLE SODIUM 40 MG TAB PO SCH (08:26)
[2016-10-07] MEDS: SERTRALINE HCL 100 MG TAB PO SCH (08:26)
[2016-10-07] MEDS: SENNOSIDES/DOCUSATE SODIUM TAB PO SCH ×2 (08:26→21:07)
[2016-10-07] MEDS: CLOPIDOGREL BISULFATE 75 MG TAB PO SCH (08:26)
[2016-10-07] MEDS ORDERED: FUROSEMIDE 40 MG/4 ML VIAL IVP ONE (12:15)
[2016-10-07] MEDS ORDERED: POTASSIUM CL 20 MEQ TAB PO ONE (12:15)
[2016-10-07] MEDS ORDERED: INSULIN LISPRO 100 UNIT/ML SC ONE (13:30)
[2016-10-07] MEDS ORDERED: INSULIN 70/30 HUMAN 100 UNITS/ML SYR SC ONE (21:00)
[2016-10-07] MEDS: TAMSULOSIN HCL 0.4 MG CAP PO SCH (21:08)
[2016-10-07] MEDS: AMIODARONE HCL 200 MG TAB PO SCH (21:08)
[2016-10-07] MEDS: ATORVASTATIN CALCIUM 40 MG TAB PO SCH (21:08)
[2016-10-07] MEDS: IPRATROPIUM/ALBUTEROL 3 ML DEYVIAL IH PRN (21:16)
[2016-10-08 05:30] LABS: ANION GAP 11 mEq/L (8-16); CALCIUM 8.9 mg/dL (8.5-10.4); CARBON DIOXIDE 24 mEq/l (22-31); CHLORIDE 101 mEq/L (97-110); CREATININE 1.5 mg/dL (0.7-1.3); GLOMERULAR FILTRATION RATE 47; GLUCOSE 197 mg/dL (70-100); POTASSIUM 3.8 mEq/L (3.5-5.2); SODIUM 136 mEq/L (134-144)
[2016-10-08] MEDS ORDERED: INSULIN GLARGINE 100 UNITS/ML SYRINGE SC SCH (07:00)
--- NOTE | 2016-10-08 07:30 | SOAPPROG ---
SOAP Progress Note Assessment/Plan: Assessment: POD#4 CABG x 4 (free FULTON-D1, SV-LAD, SV-PLC, SV-RCA). EVH LLE. Prophylactic AtriClip ligation of left atrial appendage. Sx CAD w preserved LV systolic fx - s/p CABG x 4. Early post op course complicated by presumed postCPB vasoplegia requiring fluid support and low dose levo. No prolonged support. Tubes and wires out. Secondary prevention with ASA, BB as allowed by BP, and statin and when eating well. Adjunctive Plavix x 1 month for free FULTON graft. Acute postoperative respiratory insufficiency - Multifactorial (JAYLENE, suspected COPD, hypoventilation/somnolence on narcs). Resolved with supportive therapy and adjustment in analgesic regimen. Postoperative PAF - with CVR, converting to SR on amio as per protocol. Thromboprophylaxis with DAPT unless recurrent or persistent atrial arrhythmia. Acute expected blood loss anemia - Stable s/p 1u PRBC. H/H > 11/15 maintained. VTE prophylaxis with DAPT. AVELINO - Peak Cr 2.3 of POD#2. Exacerbated by hemodynamic instability. Prompt improvement with pressor support and liberalized fluid intake. Follow. DM2, controlled - By preop a1c of 6.9%. Postop hyperglycemia managed with insulin gtt. Transition to prandial/basal/SSI per ICU. IM to assist with management on PCU. Plan: Cont amio 200 mg BID. Diabetic management per IM. Cont aggressive pulm toilet. Add mucinex. Cont inc activity as tolerated. Dispo - Anticipate discharge home w HHC vs SNF next 48hrs. 10/08/16 07:29 Subjective: Doing ok. Making progress with IS but having trouble mobilizing phlegm. Appetite remains somewhat poor. Getting more independent with transfers. Easily winded with light activity. Objective: Vital Signs Temp Pulse Resp BP Pulse Ox 37.2 C 69 16 92/57 L 96 10/08/16 07:18 10/08/16 07:18 10/08/16 07:18 10/08/16 07:18 10/08/16 07:18 Laboratory Results 10/07/16 05:40 10/08/16 04:55 10/07/16 10/08/16 10/09/16 05:59 05:59 05:59 Intake Total 1498.8 2332.4 Output Total 2325 850 Balance -826.2 1482.4 Holding SR. SBP too low for BB. Excellent sats on 4 Lpm O2, likely could wean down. Fluid balance reflects inc intake. Wt down 2 kg and now within 2 kg of preop wt. Labs ok. Physical Exam - Physical Exam General Appearance: alert, no apparent distress Respiratory: normal breath sounds (upper airways), wheezing (bases) Cardiac/Chest: regular rate, rhythm, other (Sternum grossly stable. Sternotomy and LLE venotomy CDI) Abdomen: normal bowel sounds, non-tender, soft Skin: warm/dry Extremities: other (no visible edema) ICD10 Worksheet Patient Problems: Problems Problem Status Onset CAD (coronary artery disease), [place] coronary artery Acute Chronic Disease Mgmt/Transitional Care Acute
[2016-10-08] MEDS: traMADol 50 MG TAB PO PRN ×3 (09:47→21:08)
[2016-10-08] MEDS: SENNOSIDES/DOCUSATE SODIUM TAB PO SCH ×2 (09:47→21:08)
[2016-10-08] MEDS: CLOPIDOGREL BISULFATE 75 MG TAB PO SCH (09:47)
[2016-10-08] MEDS: ASPIRIN 81 MG CHEWABLE TAB PO SCH (09:47)
[2016-10-08] MEDS: PANTOPRAZOLE SODIUM 40 MG TAB PO SCH (09:47)
[2016-10-08] MEDS: SERTRALINE HCL 100 MG TAB PO SCH (09:48)
[2016-10-08] MEDS: AMIODARONE HCL 200 MG TAB PO SCH ×2 (09:48→21:08)
[2016-10-08] MEDS: INSULIN GLARGINE 100 UNITS/ML SYRINGE SC SCH ×2 (09:57→10:05)
[2016-10-08] MEDS: IPRATROPIUM/ALBUTEROL 3 ML DEYVIAL IH PRN (10:00)
[2016-10-08] MEDS: INSULIN LISPRO 100 UNIT/ML SC SCH ×3 (11:17→18:01)
[2016-10-08] MEDS: TAMSULOSIN HCL 0.4 MG CAP PO SCH (21:08)
[2016-10-08] MEDS: ATORVASTATIN CALCIUM 40 MG TAB PO SCH (21:08)
[2016-10-09] MEDS: traMADol 50 MG TAB PO PRN ×2 (03:42→09:06)
[2016-10-09] MEDS: IPRATROPIUM/ALBUTEROL 3 ML DEYVIAL IH PRN ×2 (03:45→11:15)
[2016-10-09 06:02] LABS: POTASSIUM 3.5 mEq/L (3.5-5.2)
[2016-10-09] MEDS ORDERED: NITROGLYCERIN 0.4 MG BTL SL PRN (07:59)
[2016-10-09] MEDS ORDERED: POTASSIUM Cl (KCl) 50 ML IV ONE (08:17)
[2016-10-09] MEDS ORDERED: POTASSIUM CL 20 MEQ TAB PO ONE ×2 (08:17→09:00)
[2016-10-09] MEDS ORDERED: CHLORTHALIDONE 25 MG TAB PO SCH (09:00)
[2016-10-09] MEDS: INSULIN LISPRO 100 UNIT/ML SC SCH ×3 (09:05→17:56)
[2016-10-09] MEDS: INSULIN GLARGINE 100 UNITS/ML SYRINGE SC SCH (09:05)
--- NOTE | 2016-10-09 09:06 | SOAPPROG ---
SOAP Progress Note Assessment/Plan: Assessment: POD#5 CABG x 4 (free FULTON-D1, SV-LAD, SV-PLC, SV-RCA). EVH LLE. Prophylactic AtriClip ligation of left atrial appendage. Sx CAD w preserved LV systolic fx - s/p CABG x 4. Early post op course complicated by presumed postCPB vasoplegia requiring fluid support and low dose levo. No prolonged support. Tubes and wires out. Secondary prevention with ASA, statin, and BB as allowed by BP. Adjunctive Plavix x 1 month for free FULTON graft. Acute postoperative respiratory insufficiency - Multifactorial (JAYLENE, suspected COPD, hypoventilation/somnolence on narcs). Resolved with supportive therapy and adjustment in analgesic regimen. Postoperative PAF - with CVR, converting to SR on amio as per protocol. Insufficient BP for BB. Thromboprophylaxis with DAPT unless recurrent or persistent atrial arrhythmia. Acute expected blood loss anemia - Stable s/p 1u PRBC. H/H > /29 maintained. VTE prophylaxis with DAPT. AVELINO - Peak Cr 2.3 of POD#2. Exacerbated by hemodynamic instability. Prompt improvement with pressor support and liberalized fluid intake. Follow. DM2, controlled - By preop a1c of 6.9%. Postop hyperglycemia managed with insulin gtt. Transition to prandial/basal/SSI per ICU. IM to assist with management on PCU. Plan: Cont amio 200 mg BID. Resume daily diuresis. Lasix today. Usual chlorthalidone tomorrow. Replete K. Diabetic management per IM. Cont aggressive pulm toilet. Cont inc activity as tolerated. Dispo - Anticipate SNF ([facility]) vs [facility] tomorrow. Await PT input. 10/09/16 09:05 Subjective: Doing ok. Found showering yest pretty fatiguing. Recognizes too weak for home. Objective: Vital Signs Temp Pulse Resp BP Pulse Ox 36.8 C 76 12 104/57 L 94 10/09/16 07:21 10/09/16 07:21 10/09/16 07:21 10/09/16 07:21 10/09/16 07:21 Laboratory Results 10/07/16 05:40 10/09/16 04:45 10/08/16 10/09/16 10/10/16 05:59 05:59 05:59 Intake Total 2332.4 1650 Output Total 850 925 200 Balance 1482.4 725 -200 Holding SR w rates 70s-80s. SBP still too low for BB. CXR-> mild pulm vasc congestion, no effusions Positive fluid balance. +2.5 kg overall. Physical Exam - Physical Exam General Appearance: alert, no apparent distress Respiratory: lungs clear (grossly) Cardiac/Chest: regular rate, rhythm, other (Sternum grossly stable. Sternotomy and LLE venotomy CDI.) Abdomen: non-tender, soft Skin: warm/dry Extremities: swelling (trace dependent) ICD10 Worksheet Patient Problems: Problems Problem Status Onset CAD (coronary artery disease), [place] coronary artery Acute Chronic Disease Mgmt/Transitional Care Acute
[2016-10-09] MEDS: CLOPIDOGREL BISULFATE 75 MG TAB PO SCH (09:07)
[2016-10-09] MEDS: ASPIRIN 81 MG CHEWABLE TAB PO SCH (09:07)
[2016-10-09] MEDS: AMIODARONE HCL 200 MG TAB PO SCH ×2 (09:07→20:17)
[2016-10-09] MEDS: SERTRALINE HCL 100 MG TAB PO SCH (09:07)
[2016-10-09] MEDS: SENNOSIDES/DOCUSATE SODIUM TAB PO SCH ×2 (09:07→20:16)
[2016-10-09] MEDS: FUROSEMIDE 40 MG TAB PO SCH ×2 (09:07→15:02)
[2016-10-09] MEDS: PANTOPRAZOLE SODIUM 40 MG TAB PO SCH (09:07)
[2016-10-09] MEDS ORDERED: INSULIN GLARGINE 100 UNITS/ML SYRINGE SC SCH (09:55)
[2016-10-09] MEDS ORDERED: INSULIN GLARGINE 100 UNITS/ML SYRINGE SC ONE (10:45)
[2016-10-09 16:29] LABS: POTASSIUM 3.6 mEq/L (3.5-5.2)
[2016-10-09] MEDS ORDERED: POTASSIUM CL 10 MEQ TAB PO ONE (17:45)
[2016-10-09] MEDS: metFORMIN HCL 500 MG TAB PO SCH (17:56)
[2016-10-09] MEDS: ACETAMINOPHEN 325 MG TAB PO PRN (20:16)
[2016-10-09] MEDS: ATORVASTATIN CALCIUM 40 MG TAB PO SCH (20:16)
[2016-10-09] MEDS: TAMSULOSIN HCL 0.4 MG CAP PO SCH (20:17)
[2016-10-09] MEDS: guaiFENesin 600 MG TAB.ER PO SCH (20:17)
--- NOTE | 2016-10-09 21:18 | GCON ---
[f rep st] CONSULTATION MEDICINE CONSULTATION DATE OF CONSULTATION: 10/09/2016 REASON FOR CONSULTATION: This is a medicine consultation at the request of Dr. Chung Gimenez for eval uation and management of diabetes. HISTORY: This is a 66-year-old man, past medical history of diabetes, hypertension and hyperlipidem ia, who was initially admitted after being found to have severe multivessel coronary artery disease and admitted for revascularization. He is currently status post CABG x4, and has been doing well in the postoperative setting. He has been having issues with his diabetic management and I am asked t o weigh in on this at this time. PAST MEDICAL HISTORY: Includes. 1. Type 2 diabetes. 2. Coronary artery disease. 3. Hyperlipidemia. 4. Hypertension. 5. BPH. 6. COPD. 7. Obstructive sleep apnea. PAST SURGICAL HISTORY: Includes 1. Recent CABG as per above. 2. Cervical spine surgery. 3. Shoulder surgery. FAMILY HISTORY: Father had [place] at age 60. SOCIAL HISTORY: The patient is a prior smoker, currently in remission. No significant alcohol or d rug use. He was previously in the . MEDICATIONS: Home medications prior to this admission included trazodone, metformin, Flomax, sertra line, nitroglycerin, metoprolol, lisinopril, Victoza, insulin detemir, insulin NovoLog, fluticasone, chlorthalidone, atorvastatin, aspirin, albuterol. ALLERGIES: No known drug allergies. PHYSICAL EXAM: VITAL SIGNS: BP 95/56, heart rate 73, respiratory rate 16, O2 sats 95% on room air. Temperature 36.5. GENERAL APPEARANCE: Well-developed/well-nourished man. He is awake and alert. He is in no acute distress. EYES: Anicteric. HENT: Oropharynx clear. CARDIOVASCULAR: RRR, sternal incision is clean, dry, and intact. PULMONARY: CTA bilaterally. ABD OMEN: Soft, nontender. Positive bowel sounds. EXTREMITIES: Trace bilateral lower extremity edema . SKIN: Warm, dry, well perfused. NEURO/PSYCH: Oriented and appropriate. Gait is normal. CLINICAL DATA: Labs reviewed and significant for white blood cell count of 10.5, hematocrit of 29.3 . Most recent glucose is 188 and in review has been recently as high as greater than 350, average r unning in the mid 200s. ASSESSMENT AND PLAN: This is a 66-year-old man, past medical history of diabetes, coronary artery d isease, hypertension, hyperlipidemia, presenting with a 3 vessel coronary disease now status post co ronary artery bypass grafting x4. 1. Diabetes. This has been poorly controlled. It does sound in discussion with the patient that evelyn millan was doing better at home, and I have reviewed his home glucose measurements which were largely in the 100 to low 200 ranges. We have changed his medication regimen since admission. He has been on about half the dose of glargine given he is only taking minimal p.o. At this time, given that his h emoglobin A1c is 6.9 and that his control at home has been good I would favor starting to transition him back to his home regimen. He does have his home insulin with him and will therefore transition off glargine to insulin detemir in the morning with continued sliding scale. We will also resume evelyn is metformin at this time. It does sound as if he has a good understanding of his insulin managemen t. 2. Coronary artery disease, again status post coronary artery bypass grafting and doing well. 3. Hypertension. Blood pressures have been on the low end. We will defer to Cardiology when to re sume his home blood pressure medications. 4. Hyperlipidemia. Continue atorvastatin. 5. Chronic obstructive pulmonary disease. We will continue his usual inhalers. DISPOSITION: Inpatient status. Medicine will continue to follow while patient is in-house. Thank you for this consultation. Again, Medicine will follow while patient is in-house and please, do not hesitate to call with any questions or concerns. /[id number]/MODL
[2016-10-09] MEDS: FLUTICASONE/SALMETER 100/50MCG DISKUS IH SCH (21:56)
[2016-10-10 05:47] LABS: HEMATOCRIT 29.6 % (40.0-51.0)
[2016-10-10 06:05] LABS: ANION GAP 11 mEq/L (8-16); CALCIUM 9.2 mg/dL (8.5-10.4); CARBON DIOXIDE 25 mEq/l (22-31); CHLORIDE 99 mEq/L (97-110); CREATININE 1.1 mg/dL (0.7-1.3); GLOMERULAR FILTRATION RATE > 60; GLUCOSE 134 mg/dL (70-100); POTASSIUM 3.9 mEq/L (3.5-5.2); SODIUM 135 mEq/L (134-144)
--- NOTE | 2016-10-10 08:31 | SOAPPROG ---
SOAP Progress Note Assessment/Plan: Assessment: POD#6 CABG x 4 (free FULTON-D1, SV-LAD, SV-PLC, SV-RCA). EVH LLE. Prophylactic AtriClip ligation of left atrial appendage. Sx CAD w preserved LV systolic fx - s/p CABG x 4. Early post op course complicated by presumed postCPB vasoplegia requiring fluid support and low dose levo. No prolonged support. Tubes and wires out. Secondary prevention with ASA, statin, and BB as allowed by BP. Adjunctive Plavix x 1 month for free FULTON graft. Acute postoperative respiratory insufficiency - Multifactorial (JAYLENE, suspected COPD, hypoventilation/somnolence on narcs). Resolved with supportive therapy and adjustment in analgesic regimen. Postoperative PAF - with CVR, converting to SR on amio as per protocol. Insufficient BP for BB. Thromboprophylaxis with DAPT unless recurrent or persistent atrial arrhythmia. Acute expected blood loss anemia - Stable s/p 1u PRBC. H/H > 11/15 maintained. VTE prophylaxis with DAPT. AVELINO - Peak Cr 2.3 of POD#2. Exacerbated by hemodynamic instability. Prompt improvement with pressor support and liberalized fluid intake. Follow. DM2, controlled - By preop A1c of 6.9%. Postop hyperglycemia managed with insulin gtt. Transition to prandial/basal/SSI as per treasury consultant in ICU and IM on PCU. Plan: Cont amio 200 mg BID. Resume chlorthalidone. Diabetic management per IM. Cont aggressive pulm toilet. Cont inc activity as tolerated. Wean O2. Dispo - SNF ([facility] today. Instructions re diet, meds, activity, wound care and f/u to be reviewed in presence of . 10/10/16 08:29 Subjective: Significant functional progress last 24 hrs. +BMs. Hopeful that won't need more than a week in SNF to recover full independence with ADLs. Objective: Vital Signs Temp Pulse Resp BP Pulse Ox 37.0 C 65 19 97/63 L 95 10/10/16 04:00 10/10/16 04:00 10/10/16 04:00 10/10/16 04:00 10/10/16 04:00 Laboratory Results 10/10/16 04:48 10/10/16 04:48 10/09/16 10/10/16 10/11/16 05:59 05:59 05:59 Intake Total 1650 1750 Output Total 925 1050 Balance 725 700 Cardioresp status stable. 1 kg above preop wt. Labs ok. Physical Exam - Physical Exam General Appearance: alert, no apparent distress Respiratory: normal breath sounds Cardiac/Chest: regular rate, rhythm, other (sternotomy and LLE venotomy CDI) Abdomen: non-tender, soft Skin: warm/dry Extremities: other (no visible edema) ICD10 Worksheet Patient Problems: Problems Problem Status Onset CAD (coronary artery disease), [place] coronary artery Acute Chronic Disease Mgmt/Transitional Care Acute
[2016-10-10] MEDS: SERTRALINE HCL 100 MG TAB PO SCH (08:52)
[2016-10-10] MEDS: PANTOPRAZOLE SODIUM 40 MG TAB PO SCH (08:52)
[2016-10-10] MEDS: CLOPIDOGREL BISULFATE 75 MG TAB PO SCH (08:52)
[2016-10-10] MEDS: ASPIRIN 81 MG CHEWABLE TAB PO SCH (08:52)
[2016-10-10] MEDS: guaiFENesin 600 MG TAB.ER PO SCH (08:52)
[2016-10-10] MEDS: AMIODARONE HCL 200 MG TAB PO SCH (08:53)
[2016-10-10] MEDS: metFORMIN HCL 500 MG TAB PO SCH (08:53)
[2016-10-10] MEDS ORDERED: SENNOSIDES/DOCUSATE SODIUM TAB PO PRN (09:00)
[2016-10-10] MEDS: INSULIN LISPRO 100 UNIT/ML SC SCH (09:02)
[2016-10-10] MEDS: FLUTICASONE/SALMETER 100/50MCG DISKUS IH SCH (09:14)
[2016-10-10 11:04] VITALS: BP 105/55; PULSE 84; RESP 20; TEMP 98; O2SAT 94
[2016-10-10] MEDS ORDERED: PNEUMOC 13-VAL CONJ-DIP CRM/PF 0.5 ML SYR IM ONE (11:59)
--- NOTE | 2016-10-10 12:57 | PDIAF ---
- Diagnosis Diagnosis: JAYLENE, COPD, DM2, CAD s/p CABG; postop PAF Code Status: Full Code - Medication Management Discharge Medications: Medications to Continue on Transfer Albuterol [Proventil Inhaler HFA (*)] 1 - 2 puffs IH DAILY PRN 09/25/16 [Last Taken 10/02/16] Aspirin [Aspirin 81mg (*)] 81 mg PO DAILY 09/25/16 [Last Taken 10/03/16] Atorvastatin Calcium [Lipitor 40 mg (*)] 40 mg PO HS 09/25/16 [Last Taken 22:00] Chlorthalidone [Chlorthalidone 25 mg (*)] 25 mg PO DAILY 09/25/16 [Last Taken ] Fluticasone Nasal [Flonase Nasal [place]] 2 sprays NASAL DAILY PRN 09/25/16 [Last Taken 10/02/16] Insulin Detemir [Levemir] 45 - 50 unit SQ HS 09/25/16 [Last Taken 10/03/16 21:00 ] Nitroglycerin [Nitrostat 0.4 mg (*)] 0.4 mg SL Q5M PRN 09/25/16 [Last Taken Unknown] Sertraline HCl [Zoloft 100mg (*)] 100 mg PO DAILY 09/25/16 [Last Taken 10/03/16] Tamsulosin HCl [Flomax 0.4 MG (*)] 0.4 mg PO HS 09/25/16 [Last Taken 10/03/16 21 :00] metFORMIN HCL [Glucophage 500 mg (*)] 1,000 mg PO BIDMEAL 09/25/16 [Last Taken 10/01/16] Acetaminophen [Tylenol 325mg (*)] 325 - 650 mg PO Q4HRS PRN #0 tab 10/10/16 [ Last Taken Unknown] Amiodarone HCl [Pacerone (*)] 200 mg PO BID #0 tab 10/10/16 [Last Taken Unknown] Clopidogrel Bisulfate [Plavix (*)] 75 mg PO DAILY #0 tab 10/10/16 [Last Taken Unknown] Dextrose 50% Syringe 25 gm IVP PRN PRN #0 syr 10/10/16 [Last Taken Unknown] Fluticasone/[place] 100/50Mcg [Advair 100/50 (*)] 1 puffs IH BID #0 disk [Last Taken Unknown] Hydrocodone/APAP 5/325 [[place] 5/325 (*)] 1 - 2 tab PO Q4HRS PRN #0 tab 10/10/16 [Last Taken Unknown] Insulin Lispro [humALOG LISPRO 100 units/ml (*)] 0 unit SC TIDMEAL #0 unit 10/10 [Last Taken Unknown] Polyethylene Glycol 3350 [Miralax 17 gm (*)] 17 gm PO DAILY PRN #0 pkt 10/10/16 [Last Taken Unknown] Sennosides/Docusate Sodium [Senokot-S] 1 - 2 tab PO BID PRN #0 tab 10/10/16 [ Last Taken Unknown] guaiFENesin [Mucinex 600 MG (*)] 600 mg PO BID #0 tab.er 10/10/16 [Last Taken Unknown] traMADol [Ultram 50 mg (*)] 50 - 100 mg PO Q4HRS PRN #0 tab 10/10/16 [Last Taken Unknown] Discharge Medications: Refer to the Discharge Home Medication list for PRN reason. PICC Care - Routine: N/A - Orders Services needed: Registered Nurse, Physical Therapy, Occupational Therapy Oxygen: 1-2 Lpm cont, or as directed by SpO2; titrate to sat > 89% Diet Recommendation: cardiac -low fat low salt, ADA 2000 consistent carb Diet Texture: Regular Texture Diet Weigh Patient: daily (call Dr Gimenez's office for gain > 2 lbs overnight or absolute gain > 5 lbs) [place]: Not applicable Wound Care Instructions: Daily soap and water. Ok to leave open to air. Avoid ointments until scabs off Activity/Weight Bearing Restrictions: sternal precautions x 3 more weeks. avoid push/pull activities. avoid lifting > 10 lbs with an outstretched arm Equipment: 4WW, O2 Additional: Call patient's front end ui developer for any concerns glycemic control - Labs/Radiology BMP Date: 10/14/16 (Results to Dr Gimenez) CBC Date: 10/14/16 (Results to Dr Gimenez) FBS Date: 10/10/16 (ac and hs) Imaging Orders: Chest xray prior to surgical appointment. Budget 30min to accomplish Call or Fax Lab and Imaging Results to: Dr Gimenez's nurse, Kaur Joe - Follow Up Care Current Providers and Referrals: Timmy Moreira MD [Medical Doctor] - 3 days of d/c SNF/Rehab [facility] [Primary Care Provider] - Chung Gimenez DO [Doctor of Osteopathy] - 10/15/16 11:45 am Art Campos MD [Medical Doctor] - (Follow up in 6 weeks. Appointment to be established by surgery.)
--- NOTE | 2016-10-10 16:58 | PDDCSUM ---
Discharge Summary Discharge Summary: DATE OF ADMISSION: 10/04/16 DATE OF DISCHARGE: 10/10/16 DISPOSITION: Transferred to [facility] PRINCIPAL DISCHARGE DIAGNOSES: 1. Symptomatic severe multivessel coronary artery disease treated with coronary artery bypass grafting 2. Acute postoperative respiratory insufficiency 3. Acute postoperative shock with multiorgan dysfunction 4. Acute expected blood loss anemia 5. Postoperative paroxysmal atrial fibrillation FOLLOW UP APPOINTMENTS: 1. CV surgery: with Dr Gimenez at [facility] on 10/15 at 11:45am. 2. Cardiology: with Dr Campos at [facility] within 4-6 weeks. Appointment to be established during surgical visit. 3. Pulmonology: with Dr Moreira at [facility] Pulmonology within 6-8 weeks. PFTs and inhaler review. FOLLOW UP TESTIN. CBC and BMP on 10/14. Results to [facility]. 2. CXR prior to surgical appointment. ALLERGIES/SENSITIVITIES: NKDA DISCHARGE MEDICATIONS: See medical administration record for full details As on admission (Flomax, Nitrostat, Proventil MDI, Zoloft, Metformin, Lipitor, Insulin Levemir qhs, Insulin Novolog TID meal, Flonase, Chlorthalidone, ASA 81 mg daily) with the following adjustments: 1. Hold Metoprolol tartrate 12.5 mg BID. 2. Hold Lisinopril 20 mg BID. 3. Hold Liraglutide 1.8 mg SQ daily. 4. Hold Insulin Aspart 15-30 unit SQ TID meal. 5. Hold Trazodone 50-100 mg HS. NEW prescriptions: 1. Plavix 75 mg daily thru 11/10/16. 2. Amiodarone 200 mg BID thru 10/17/16, then 200 mg daily x 4 weeks or as per cardiology. 3. Ultram 50 mg q 4-6 hr prn incisional pain. 4. Advair MDI 100/50mcg one puff IH BID. 5. Mucinex 600 mg BID x 2 weeks and then prn difficulty mobilizing phlegm. 6. Insulin Lispro SSI 7. Oxygen @ 1-2 Lpm continuously or as directed by SpO2. Titrate to SpO2 > 88% + /- activity. CONSULTANTS: Pulmonology/critical care (Harish), Hospitalist (Guerrero) PROCEDURES/IMAGIN/18 (Ammy): Coronary artery bypass grafting x 4 (free FULTON-D1, SV-LAD, SV-PLC , SV-RCA). Takedown left internal mammary artery. Endoscopic vein harvest LLE. Prophylactic AtriClip ligation of left atrial appendage. 10/05 (Steve): Transthoracic echocardiogram. HISTORY OF PRESENT ILLNESS: 66 yo male with multiple cardiac risk factors, declining stamina, worsening chest pains, and an abnormal stress test. Found to have severe multivessel CAD with mild LVDD and admitted for elective surgical revascularization. PERTINENT PAST MEDICAL HISTORY: Type II diabetes mellitus with dyslipidemia, HTN, obesity (BMI > 30), JAYLENE, Chronic bronchitis/suspected COPD, BPH with LUTS of nocturia and slow stream ABBREVIATED HOSPITAL COURSE BY ACTIVE PROBLEM LIST: 1. Sx CAD w preserved LV systolic fx - s/p CABG x 4. Early post op course complicated by presumed postCPB vasoplegia requiring fluid support and low dose levo. No prolonged support. Bedside echo neg for RWMA, LVSD, valvular dysfx or pericardial effusion. Secondary prevention with ASA, statin, and BB as allowed by BP. Adjunctive Plavix x 1 month for free FULTON graft. 2. Acute postoperative respiratory insufficiency - Extubated in the OR. Subsequent 12 hrs complicated by hypoxemia and agitation followed by hypoventilation/somnolence on narcs/anxiolytics. Resolved with supportive therapies and adjustment in analgesic regimen. No invasive interventions required. 3. Postop PAF - with CVR, converting to SR on amio as per protocol. Insufficient BP for BB. Thromboprophylaxis with DAPT as isolated episode and KATHY excluded. 4. Acute expected blood loss anemia - Stable s/p 1u PRBC. H/H > 11/15 maintained. 5. AVELINO - Peak Cr 2.3 of POD#2. Exacerbated by hemodynamic instability. Prompt improvement with pressor support and liberalized fluid intake. 6. DM2, controlled - Preop A1c of 6.9%. Postop hyperglycemia managed with insulin gtt. Transition to prandial/basal/SSI as per dispensing optician apprentice in ICU and IM on PCU. Resumption of ACEI as allowed by BP and stability of renal fx.
== END 2016-10-10 13:37 | DRG 235 ==
LOC: F2N 05:20 → F2W 10-07 14:58
PROVIDERS: ADMIT Thoracic Surgery (Cardiothoracic Vascular Surgery); ATTEND Thoracic Surgery (Cardiothoracic Vascular Surgery)
DX: I25.110 Atherosclerotic heart disease of native coronary artery with unstable angina pectoris (principal); J95.1 Acute pulmonary insufficiency following thoracic surgery; J44.9 Chronic obstructive pulmonary disease, unspecified; Z87.891 Personal history of nicotine dependence; T81.19XA Other postprocedural shock, initial encounter; N17.0 Acute kidney failure with tubular necrosis; D62 Acute posthemorrhagic anemia; I97.89 Other postprocedural complications and disorders of the circulatory system, not elsewhere classified; I48.0 Paroxysmal atrial fibrillation; I10 Essential (primary) hypertension; G47.33 Obstructive sleep apnea (adult) (pediatric); E78.5 Hyperlipidemia, unspecified; N40.0 Benign prostatic hyperplasia without lower urinary tract symptoms; E11.65 Type 2 diabetes mellitus with hyperglycemia; Z79.4 Long term (current) use of insulin; Z23 Encounter for immunization
CPT/HCPCS: 82947-QW; 92526-GN; 92610-GN; 97110-GP; 97116-GP; 97162-GP; 97165-GO; 97530-GP; 97535-GO; G0009; G8978-GP-CK; G8979-GP-CJ; G8987-GO-CK; G8988-GO-CI; G8996-GN-CH; G8996-GN-CI; G8997-GN-CH; G8998-GN-CH; J0153; J0171; J0282; J0330; J0690; J1170; J1265; J1644; J1815; J1885; J1940; J2001; J2150; J2250; J2260; J2370; J2405; J2440; J2704; J2720; J2765; J2930; J3010; J7060; P9016; P9041

== ENCOUNTER → 2016-10-15 | Outpatient (CLI) | payer OTHER, BC | LOC: FIMAGING 11:23 | PROVIDERS: ATTEND Thoracic Surgery (Cardiothoracic Vascular Surgery) | DX: R91.8 Other nonspecific abnormal finding of lung field (principal); Z95.1 Presence of aortocoronary bypass graft ==